=== PATIENT | female | born 1945 | race African-American/Black ===

== ENCOUNTER 2016-10-14 12:02 | Emergency (ER) | payer MEDICARE, MEDICAID ==
[2016-10-14 12:35] VITALS: BP 148/74
--- NOTE | 2016-10-14 13:11 | ER Document Report ---
ED Fall - General Chief Complaint: Fall Stated Complaint: FALL/KNEE PAIN Time Seen by Provider: 10/14/16 13:04 Notes: 71 yo female c/o left knee pain. fell from standing onto left knee earlier today. no previous injury. denies other injury TRAVEL OUTSIDE OF THE [place] IN LAST 30 DAYS: No - HPI Occurred: This morning Where: Home Context: Tripped Associated symptoms: None Location of injury/pain: Knee - left Quality of pain: Achy Severity: Mild Pain Level: 2 Past Medical History - General Information source: Patient - Social History Smoking Status: Never Smoker Frequency of alcohol use: None Drug Abuse: None Lives with: Family Family History: Reviewed & Not Pertinent Patient has suicidal ideation: No Patient has homicidal ideation: No Renal/ Medical History: Denies: Hx Peritoneal Dialysis Review of Systems - Review of Systems Constitutional: No symptoms reported EENT: No symptoms reported Cardiovascular: No symptoms reported Respiratory: No symptoms reported Gastrointestinal: No symptoms reported Genitourinary: No symptoms reported Female Genitourinary: No symptoms reported Musculoskeletal: See HPI Skin: No symptoms reported Hematologic/Lymphatic: No symptoms reported Neurological/Psychological: No symptoms reported Physical Exam - Vital signs Vitals: Pulse Resp BP Pulse Ox 64 16 148/74 H 98 10/14/16 12:34 10/14/16 12:34 10/14/16 12:34 10/14/16 12:34 Interpretation: Normal - General General appearance: Appears well, Alert - HEENT Head: Normocephalic, Atraumatic Eyes: Normal Pupils: PERRL - Respiratory Respiratory status: No respiratory distress Chest status: Nontender Breath sounds: Normal Chest palpation: Normal - Cardiovascular Rhythm: Regular Heart sounds: Normal auscultation Murmur: No - Abdominal Inspection: Normal Distension: No distension Bowel sounds: Normal Tenderness: Nontender Organomegaly: No organomegaly - Back Back: Normal, Nontender - Extremities General upper extremity: Normal inspection, Nontender, Normal color, Normal ROM , Normal temperature General lower extremity: Tender - left nee, Normal color, Normal ROM, Normal temperature, Other - antalgic gait Knee: Tender - left medial compartment. no effusion.. No: Deformity, Drawer's test instability, Ecchymosis, Joint effusion Calf: Normal - Neurological Neuro grossly intact: Yes Cognition: Normal Orientation: AAOx4 Clement[place] Coma Scale Eye Opening: Spontaneous [place] Coma Scale Verbal: Oriented [place] Coma Scale Motor: Obeys Commands Clemente Coma Scale Total: 15 Speech: Normal Motor strength normal: LUE, RUE, LLE, RLE Sensory: Normal - Psychological Associated symptoms: Normal affect, Normal mood - Skin Skin Temperature: Warm Skin Moisture: Dry Skin Color: Normal Course - Re-evaluation Re-evalutation: 10/14/16 13:57 xray films and rad report reviewed. negative for fracture. results reviewed with patient. will dean for support and comfort. ultram for pain. outpt follow up with primary care if pain persists. pt agreeable with plan and stable for discharge - Vital Signs Vital signs: Temp Pulse Resp BP Pulse Ox 97.7 F 64 16 148/74 H 98 10/14/16 12:35 10/14/16 12:34 10/14/16 12:34 10/14/16 12:34 10/14/16 12:34 Procedures - Immobilization left knee Pre-Proc Neuro Vasc Exam: Normal Immobilizer type: Dean wrap Performed by: PCT Post-Proc Neuro Vasc Exam: Normal Alignment checked and good: Yes Discharge - Discharge Clinical Impression: Contusion of left knee Qualifiers: Encounter type: initial encounter Qualified Code(s): S80.02XA - Contusion of left knee, initial encounter Instructions: Contusion ([facility]), Dean Wrap ([facility]), Ice & Elevation ([facility]), Ultram ( [facility]) Additional Instructions: your xrays were negative for fracture today wear dean wrap for comfort and support take ultram for pain as needed please follow up with primary care if pain persists more than 10 days Prescriptions: Tramadol HCl [Ultram 50 mg Tablet] 50 mg PO ASDIR PRN #20 tablet PRN Reason:
--- NOTE | 2016-10-14 13:37 | RADIOLOGY REPORT (SQ) ---
EXAM DESCRIPTION: KNEE LEFT 4 VIEW COMPLETED DATE/TIME: 10/14/2016 1:27 pm REASON FOR STUDY: fall COMPARISON: None. NUMBER OF VIEWS: Four views. TECHNIQUE: AP, lateral, and both oblique radiographic images acquired of the left knee. LIMITATIONS: None. FINDINGS: MINERALIZATION: Normal. BONES: No acute fracture or dislocation. No worrisome bone lesions. JOINT: No effusion. SOFT TISSUES: No soft tissue swelling. No radio-opaque foreign body. OTHER: No other significant finding. IMPRESSION: NEGATIVE STUDY OF THE LEFT KNEE. NO RADIOGRAPHIC EVIDENCE OF ACUTE INJURY. TECHNICAL DOCUMENTATION: JOB ID: [id number] [employer]- All Rights Reserved
== END 2016-10-14 14:20 | disposition home or self-care (01) ==
LOC: ER 12:02
DX: S80.02XA Contusion of left knee, initial encounter (principal); W19.XXXA Unspecified fall, initial encounter; Y92.009 Unspecified place in unspecified non-institutional (private) residence as the place of occurrence of the external cause
CPT/HCPCS: 99283

== ENCOUNTER 2017-06-16 14:10 | Emergency (ER) | payer MEDICARE, MEDICAID ==
--- NOTE | 2017-06-16 16:36 | RADIOLOGY REPORT (SQ) ---
EXAM DESCRIPTION: HAND RIGHT 3 VIEWS COMPLETED DATE/TIME: 06/16/2017 4:27 pm REASON FOR STUDY: injury/pain COMPARISON: None. EXAM PARAMETERS: NUMBER OF VIEWS: Three views. TECHNIQUE: AP, lateral and oblique radiographic images acquired of the right hand. LIMITATIONS: None. FINDINGS: MINERALIZATION: Normal. BONES: No acute fracture or dislocation. No worrisome bone lesions. JOINTS: No effusions. SOFT TISSUES: No soft tissue swelling. No foreign body. OTHER: No other significant finding. IMPRESSION: NEGATIVE STUDY OF THE RIGHT HAND. NO RADIOGRAPHIC EVIDENCE OF ACUTE INJURY. TECHNICAL DOCUMENTATION: JOB ID: [id number] [employer]- All Rights Reserved
--- NOTE | 2017-06-16 17:01 | ER Document Report ---
ED General - General Chief Complaint: Finger Injury Stated Complaint: RIGHT FINGER PAIN Time Seen by Provider: 06/16/17 16:07 Mode of Arrival: Ambulatory Information source: Patient Notes: pt "caught" finger in window of car. She is afraid it wont heal due to her diabetes. pain moderate, constant. worse with mvmt, better with rest. pain radiates up right arm. pain sharp TRAVEL OUTSIDE OF THE [place] IN LAST 30 DAYS: No - Related Data Allergies/Adverse Reactions: No Known Allergies Allergy (Verified 06/16/17 14:19) Past Medical History - General Information source: Patient - Social History Smoking Status: Never Smoker Frequency of alcohol use: None Drug Abuse: None Lives with: Family Family History: Reviewed & Not Pertinent Patient has suicidal ideation: No Patient has homicidal ideation: No - Past Medical History Cardiac Medical History: Reports: Hx Hypercholesterolemia, Hx Hypertension Endocrine Medical History: Reports: Hx Diabetes Mellitus Type 1 Renal/ Medical History: Denies: Hx Peritoneal Dialysis Past Surgical History: Reports: Hx Hysterectomy, Hx Tubal Ligation - Immunizations Hx Diphtheria, Pertussis, Tetanus Vaccination: Yes Review of Systems - Review of Systems Constitutional: denies: Chills, Fever Cardiovascular: denies: Chest pain, Palpitations Respiratory: denies: Cough, Short of breath -: Yes All other systems reviewed and negative Physical Exam - Vital signs Vitals: Temp Pulse BP Pulse Ox 98.6 F 71 147/77 H 99 06/16/17 14:43 06/16/17 14:43 06/16/17 14:43 06/16/17 14:43 Interpretation: Normal - General General appearance: Appears well, Alert - HEENT Head: Normocephalic, Atraumatic Eyes: Normal Pupils: PERRL - Respiratory Respiratory status: No respiratory distress Chest status: Nontender Breath sounds: Normal Chest palpation: Normal - Cardiovascular Rhythm: Regular Heart sounds: Normal auscultation Murmur: No - Abdominal Inspection: Normal Distension: No distension Bowel sounds: Normal Tenderness: Nontender Organomegaly: No organomegaly - Back Back: Normal, Nontender - Extremities General upper extremity: Other - pt has tender abrasion to right index finger General lower extremity: Normal inspection, Nontender, Normal color, Normal ROM , Normal temperature, Normal weight bearing. No: Irma's sign - Neurological Neuro grossly intact: Yes Cognition: Normal Orientation: AAOx4 [place] Coma Scale Eye Opening: Spontaneous [place] Coma Scale Verbal: Oriented [place] Coma Scale Motor: Obeys Commands [place] Coma Scale Total: 15 Speech: Normal Motor strength normal: LUE, RUE, LLE, RLE Sensory: Normal - Psychological Associated symptoms: Normal affect, Normal mood - Skin Skin Temperature: Warm Skin Moisture: Dry Skin Color: Normal Course - Vital Signs Vital signs: Temp Pulse Resp BP Pulse Ox 98.6 F 71 147/77 H 99 06/16/17 14:43 06/16/17 14:43 06/16/17 14:43 06/16/17 14:43 - Diagnostic Test Radiology reviewed: Image reviewed, Reports reviewed - no fx/dislocation Discharge - Discharge Clinical Impression: Finger abrasion Qualifiers: Encounter type: initial encounter Qualified Code(s): S60.419A - Abrasion of unspecified finger, initial encounter Condition: Stable Disposition: HOME, SELF-CARE Instructions: Abrasions ([facility]) Additional Instructions: apply bacitracin twice per day
[2017-06-16] MEDS ORDERED: BACITRACIN ZINC OINTMENT 15 GM TP ONE (17:09)
[2017-06-16] MEDS ORDERED: DIPH/PERTUSS(ACELL)/TETANUS VAC/PF 0.5 ML SYR (>=10YO) IM ONE (18:00)
[2017-06-16 18:12] VITALS: BP 147/78
== END 2017-06-16 18:12 | disposition home or self-care (01) ==
LOC: ER 14:10
DX: S60.419A Abrasion of unspecified finger, initial encounter (principal); M79.601 Pain in right arm; E11.9 Type 2 diabetes mellitus without complications; W23.0XXA Caught, crushed, jammed, or pinched between moving objects, initial encounter
CPT/HCPCS: 99283; 90471; 73130; 90715; J3490